=== PATIENT | male | born 1990 | race Hispanic/Latino ===

== ENCOUNTER 2020-02-09 07:02 | Emergency (ER) | payer OTHER ==
[~2020-02-09] VITALS: Ht 185.4 cm; Wt 90.0 kg
[2020-02-09] MEDS ORDERED: NAPROXEN500 MG PO (08:18)
[2020-02-09 08:40] VITALS: BP 123/70
== END 2020-02-09 08:50 | disposition home or self-care (01) | DRG 552 ==
LOC: ED 07:02
DX: S13.9XXA Sprain of joints and ligaments of unspecified parts of neck, initial encounter (principal); V49.9XXA Car occupant (driver) (passenger) injured in unspecified traffic accident, initial encounter

== ENCOUNTER 2020-05-06 23:43 | Emergency (ER) | payer SELFPAY ==
[~2020-05-06] VITALS: Ht 180.3 cm; Wt 81.0 kg
[~2020-05-06 23:43] MED LIST: NAPROXEN500 MG PO
[2020-05-07 01:39] VITALS: BP 125/80
== END 2020-05-07 01:39 | disposition home or self-care (01) | DRG 605 ==
LOC: ED 23:43
PROC: 0HQFXZZ Repair Right Hand Skin, External Approach (ICD-10-PCS; principal; 2020-05-07)
DX: S61.411A Laceration without foreign body of right hand, initial encounter (principal); W25.XXXA Contact with sharp glass, initial encounter; Y92.009 Unspecified place in unspecified non-institutional (private) residence as the place of occurrence of the external cause